=== PATIENT | female | born 1990 | race Two or more races ===

== ENCOUNTER 2023-06-06 14:09 | Emergency (ER) | payer BC ==
[~2023-06-06] VITALS: Ht 152.4 cm; Wt 60.8 kg
[2023-06-06] MEDS ORDERED: DEXAMETHASONE SODIUM PHOSPHATE 4 MG/ML VIAL IM ONE (17:30)
[2023-06-06] MEDS ORDERED: ORPHENADRINE CITRATE 30 MG/ML AMPUL IM ONE (17:30)
[2023-06-06] MEDS ORDERED: KETOROLAC TROMETHAMINE 60 MG VIAL IM ONE (17:30)
== END 2023-06-06 20:24 | disposition home or self-care (01) ==
LOC: ER 14:10
DX: M54.50 Low back pain, unspecified (principal)